=== PATIENT | female | born 1990 | race Caucasian/White ===

== ENCOUNTER 2023-10-07 02:30 | Inpatient (IN) ==
[2023-10-07 07:05] LABS: ABS Eosinophils 0.1 10^3/uL (0.0-0.5); ABS Lymphocytes 1.6 10^3/uL (1.0-4.8); ABS Monocytes 0.7 10^3/uL (0.0-0.9); ABS Neutrophils 6.3 10^3/uL (1.5-7.6); ABS Nucleated RBC 0.01 10^3/ul; Eosinophil % 1.3 %; Hemoglobin 13.3 g/dL (11.5-14.3); Lymphocyte % 18.3 %; Mean Corpuscular Hemoglobin 33.6 pg (27-33); Mean Corpuscular Hgb Conc 35.9 g/dL (31-36); Mean Corpuscular Volume 93.4 fL (80-97); Mean Platelet Volume 9.9 fL (7.5-11.2); Nucleated Red Blood Cells % 0.1 %/100WBC (0.0-0.8); Platelet Count 169 10^3/uL (150-450); Red Blood Count 3.96 10^6/uL (3.63-4.92); Red Cell Distribution Width 13.5 % (12-17); White Blood Count 8.8 10^3/uL (3.8-11.8)
[2023-10-07] MEDS ORDERED: Morphine PF AMP (0.5MG/ML) 5 MG/10 ML AMP ONE (07:14)
[2023-10-07] MEDS: Sodium Citrate/Citric Acid LIQ 15 ML UDC PO ONE (07:18)
[2023-10-07] MEDS ORDERED: Naloxone 0.4 mg VIAL 0.4 mg/ml 1 ml VIAL IV PUSH PRN (07:19)
[2023-10-07] MEDS ORDERED: Metoclopramide 5 MG/ML VIAL (10 mg) IV PRN (07:19)
[2023-10-07] MEDS: ceFAZolin 2 GM PREMIX 2 GM/50 ML BAG IV ONE (07:45)
[2023-10-07] MEDS ORDERED: Ondansetron 4 mg VIAL 2 MG/ML 2 ml VIAL ONE (08:30)
[2023-10-07] MEDS ORDERED: Phenylephrine IV 10 MG/ML 1 ml VIAL ONE (08:30)
[2023-10-07] MEDS ORDERED: Oxytocin 10 UNITS/ML 1 ML VIAL ONE (08:30)
[2023-10-07] MEDS ORDERED: Dexamethasone IV 4 MG/ML VIAL 1 ml VIAL ONE (08:30)
[2023-10-07] MEDS ORDERED: Witch Hazel PAD JAR TOPICAL PRN (09:23)
[2023-10-07] MEDS ORDERED: Dibucaine 1% OINT 28.35 GM TUBE PR PRN (09:23)
[2023-10-07] MEDS ORDERED: Glycerin ADULT 2.4 gm SUPP PR PRN (09:23)
[2023-10-07 09:24] LABS: Urine Appearance Clear; Urine Bilirubin Negative (Negative); Urine Blood Negative (Negative); Urine Color Light-Yellow; Urine Glucose Negative (Negative); Urine Ketones Negative (Negative); Urine Nitrite Negative (Negative); Urine Protein Negative (Negative); Urine Specific Gravity 1.009 (1.002-1.030); Urine Urobilinogen Negative (Negative)
[2023-10-07] MEDS: Acetaminophen IV 1 GM/100ML 1,000 MG/100 ML BAG IV PRN (09:39)
[2023-10-07 09:59] LABS: Urine Benzodiazepine Screen None Detected (None Detect); Urine Cannabinoids Screen None Detected (None Detect); Urine Opiates Screen None Detected (None Detect)
[2023-10-07] MEDS ORDERED: Lactated Ringers 1000 ml BAG 1,000 ML IV SCH (10:00)
[2023-10-07] MEDS: Buffered Lidocaine 1% SYRIN 1 ml INTRADERM ONE (11:02)
[2023-10-07] MEDS: Lactated Ringers 1000 ml BAG 1,000 ML IV SCH (11:02)
[2023-10-07] MEDS: Lactated Ringers 1000 ml BAG 1,000 ML IV ONE (11:03)
[2023-10-07] MEDS: Oxytocin in LR 20,000 MILLI.UNIT/1,000 ML BAG IV SCH (12:37)
[2023-10-07] MEDS: Ondansetron 4 mg VIAL 2 MG/ML 2 ml VIAL IV PRN (17:56)
[2023-10-08 06:59] LABS: ABS Eosinophils 0.1 10^3/uL (0.0-0.5); ABS Lymphocytes 1.7 10^3/uL (1.0-4.8); ABS Monocytes 0.7 10^3/uL (0.0-0.9); ABS Nucleated RBC 0.01 10^3/ul; Hematocrit 30.4 % (35-45); Hemoglobin 10.9 g/dL (11.5-14.3); Lymphocyte % 17.5 %; Mean Corpuscular Hemoglobin 33.5 pg (27-33); Mean Corpuscular Hgb Conc 35.8 g/dL (31-36); Mean Corpuscular Volume 93.6 fL (80-97); Mean Platelet Volume 9.4 fL (7.5-11.2); Nucleated Red Blood Cells % 0.1 %/100WBC (0.0-0.8); Platelet Count 116 10^3/uL (150-450); Red Blood Count 3.25 10^6/uL (3.63-4.92); Red Cell Distribution Width 13.6 % (12-17); White Blood Count 9.5 10^3/uL (3.8-11.8)
[2023-10-09 09:56] VITALS: BP 132/79
== END 2023-10-09 14:30 | disposition home or self-care (01) | DRG 540 ==
LOC: MCHOB 05:25
PROVIDERS: ADMIT Obstetrics & Gynecology; ATTEND Obstetrics & Gynecology